=== PATIENT | male | born 1985 | race Caucasian/White ===

== ENCOUNTER 2016-11-16 15:28 | Emergency (ER) | payer SELFPAY ==
[2016-11-16 16:27] VITALS: BP 129/76
--- NOTE | 2016-11-16 16:46 | ER Document Report ---
HPI - HPI Pain Level: 2 Notes: Patient is a 30-year-old male chance to the ED complaining of a bump to his right anterior wrist 1 year but has been increase in size and more painful over the last 2 weeks patient states that over the course of the year it does vary in size based on his activity with his hands. Patient states that he has been working 34 days straight using his hands a lot. Patient states that it is painful to touch. He does not have any numbness or tingling sensations. He has not noticed any strength deficits in his hand. He still able to use his hand without any problems. The pain does not radiate otherwise. He has not had this looked at in the past. At times she will take [id number] meds for symptoms like Tylenol and ibuprofen. Denies any drug allergies. Denies any daily medications. Denies any other significant past medical history. Patient is a smoker. does not do any other miscellaneous drugs. immunizations are up-to-date. Denies any fever, headache, URI, sore throat, chest pain, palpitations, syncope, cough, wheeze, shortness breath, abdominal pain, nausea/ vomiting/diarrhea, dysuria, joint pains, or rash. - ROS Notes: REVIEW OF SYSTEMS: CONSTITUTIONAL : Denies fever, chills, or sweats. Denies recent illness. CARDIOVASCULAR: Denies chest pain. Denies palpitations or racing or irregular heart beat. Denies ankle edema. RESPIRATORY: Denies cough, cold, or chest congestion. Denies shortness of breath, difficulty breathing, or wheezing. GASTROINTESTINAL: Denies abdominal pain or distention. Denies nausea, vomiting , or diarrhea. Denies blood in vomitus, stools, or per rectum. Denies black, tarry stools. Denies constipation. GENITOURINARY: Denies difficulty urinating, painful urination, burning, frequency, blood in urine, or discharge. MUSCULOSKELETAL: see hpi SKIN: Denies rash, lesions or sores. NEUROLOGICAL: Denies confusion or altered mental status. Denies passing out or loss of consciousness. Denies dizziness or lightheadedness. Denies headache. Denies weakness or paralysis or loss of use of either side. Denies problems with gait or speech. Denies sensory loss, numbness, or tingling. Denies seizures. ALL OTHER SYSTEMS REVIEWED AND NEGATIVE. Dictation was performed using [employer] voice recognition software - DERM Skin Color: Normal Past Medical History - Social History Smoking Status: Current Every Day Smoker Family History: Reviewed & Not Pertinent Patient has suicidal ideation: No Patient has homicidal ideation: No Renal/ Medical History: Denies: Hx Peritoneal Dialysis Vertical Provider Document - CONSTITUTIONAL Notes: PHYSICAL EXAMINATION: GENERAL: Well-appearing, well-nourished and in no acute distress. NECK: Normal range of motion, supple without lymphadenopathy LUNGS: Breath sounds clear to auscultation bilaterally and equal. No wheezes rales or rhonchi. HEART: Regular rate and rhythm without murmurs, rubs, gallops. Musculoskeletal: Rt wrist/hand: + round cystic mass, rubbery, mobile, consistent with ganglion cyst, showing from the anterior wrist (approx 0.5- 0.75cm, raised approx 0.25-0.5cm). FROM to passive/active. Strength 5+/5. N/V intact. tinel/phalen negative. + mild tenderness to palp of the cystic lesion. Extremities: No cyanosis, clubbing, or edema b/l. Peripheral pulses 2+. Capillary refill less than 3 seconds. NEUROLOGICAL: Normal sensory, motor exams PSYCH: Normal mood, normal affect. SKIN: Warm, Dry, normal turgor, no rashes or lesions noted. no ecchymosis, abrasion, laceration, erythema, abscess, streaks, or discharge noted. - INFECTION CONTROL TRAVEL OUTSIDE OF THE [place] IN LAST 30 DAYS: No - RESPIRATORY O2 Sat by Pulse Oximetry: 97 Course - Re-evaluation Re-evalutation: 11/16/16 16:46 Patient is an afebrile, well-hydrated, 30-year-old male presents to the ED with suspected ganglion cyst to his right anterior wrist. No mechanical compromise or neurovascular compromise based on exam today. Vitals are stable. PE otherwise unremarkable. Wrist x-ray unremarkable. Reviewed with the patient that more activity he does with his hands the more fluid that can accumulate in the cyst and the more painful it can become. Rest greatly help, but the patient needs to work. Reviewed the risks and benefits of aspiration but patient declined as his symptoms were most likely return in he would have an increased risk of infection. I will provide information for the hand surgeon Dr. Rhodes. He may use Tylenol/ibuprofen and other conservative measures as needed. Recheck with your PCM in 2-3 days. Return to ED with any worsening/ concerning symptoms otherwise as reviewed. Patient is in agreement. - Vital Signs Vital signs: Temp Pulse Resp BP Pulse Ox 98 F 76 19 129/76 H 97 11/16/16 16:25 11/16/16 16:25 11/16/16 16:25 11/16/16 16:25 11/16/16 16:25 Discharge - Discharge Clinical Impression: Ganglion cyst of volar aspect of right wrist Condition: Stable Disposition: HOME, SELF-CARE Additional Instructions: Rest, Ice, Compression, Elevation A volar wrist splint may help, may pick up operator at pharmacy Tylenol/ibuprofen as needed Light stretches daily Strength exercises as able Moist heat and massage may help F/u with your PCP in 2-3 days for a recheck Call the hand surgeon tomorrow to schedule an appointment, Dr. Rhodes's office. Return to the ED with any worsening pain, swelling, numbness/tingling, muscle weakness, loss of strength, red streaks, abscess, purulent discharge, development of fever, or any other concerning/worsening symptoms otherwise as needed. Referrals: PREETI RHODES, [ACTIVE STAFF] - Follow up as needed
--- NOTE | 2016-11-16 18:11 | RADIOLOGY REPORT (SQ) ---
EXAM DESCRIPTION: WRIST RIGHT 3 VIEWS COMPLETED DATE/TIME: 11/16/2016 5:06 pm REASON FOR STUDY: suspect ganglion cyst rt anterior wrist COMPARISON: None. NUMBER OF VIEWS: Three views. TECHNIQUE: AP, lateral, and oblique radiographic images acquired of the right wrist. LIMITATIONS: None. FINDINGS: MINERALIZATION: Normal. BONES: No acute fracture or dislocation. Older healing 5th metacarpal fracture. No worrisome bone l esions. Normal alignment. SOFT TISSUES: No significant soft tissue swelling. No foreign body. OTHER: No other significant finding. IMPRESSION: Older healing 5th metacarpal fracture. NO RADIOGRAPHIC EVIDENCE OF ACUTE INJURY. TECHNICAL DOCUMENTATION: JOB ID: [id number] [employer]- All Rights Reserved
== END 2016-11-16 18:00 | disposition home or self-care (01) ==
LOC: ER 15:28
DX: M67.431 Ganglion, right wrist (principal); F17.200 Nicotine dependence, unspecified, uncomplicated
CPT/HCPCS: 99283